=== PATIENT | female | born 1970 | race Native Hawaiian/Other Pacific Islander ===

== ENCOUNTER → 2022-10-02 09:48 | Outpatient (CLI) | payer OTHER, MEDICAID, SELFPAY ==
--- NOTE | 2022-10-02 | DI.CT.S_ITS ---
PROCEDURE: CT ABDOMEN ADRENAL PROTOCOL INDICATIONS: ADRENAL NODULE TECHNIQUE: Noncontrast 3 mm thick sections acquired from the diaphragms to the iliac crests. After the administration of intravenous contrast, 3 mm thick venous-phase and 15-minute delayed images acquired from the diaphragms to the iliac crests. For radiation dose reduction, the following was used: automated exposure control, adjustment of mA and/or kV according to patient size. COMPARISON: [facility], CT, ABDOMEN W AND WO PELVIS W, 12/14/2015, 12:17. FINDINGS: Image quality: Excellent. Lung bases: Lung bases are clear. Heart size is normal. Adrenal glands: Stable size of the 1.5 cm left adrenal nodule. Absolute washout of 66%, consistent with opening adrenal adenoma. Solid organs: Liver is normal in size and enhancement. Gallbladder is unremarkable . Biliary system is non dilated. Pancreas enhances normally. Spleen is normal in size and enhancement. Kidneys are normal in size and enhancement. No hydronephrosis or nephrolithiasis. Peritoneum and bowel: Unenhanced bowel loops are normal in caliber and wall thickness. No free fluid or air. Gastric bypass. Sequela of intraperitoneal fat necrosis of the hepatic flexure. Nodes and vessels: No retroperitoneal or mesenteric adenopathy by size criteria. Aorta and inferior vena cava are normal in size. Miscellaneous: No ventral hernias. Bones: No suspicious bony lesions. No vertebral body compression fractures. IMPRESSION: Benign left adrenal adenoma based on stability since 2015, and washout characteristics. Dictated by: Walker Charles M.D. on 10/02/2022 at 14:46 Approved by: Walker Charles M.D. on 10/02/2022 at 14:50
== END ==
PROVIDERS: PCP Physician Assistant; Referring Provider Student in an Organized Health Care Education/Training Program; Visit Provider Student in an Organized Health Care Education/Training Program
DX: D35.02 Benign neoplasm of left adrenal gland (principal)
CPT/HCPCS: 74170; Q9967